=== PATIENT | female | born 1945 | race Caucasian/White ===

== ENCOUNTER → 2018-06-14 | Outpatient (CLI) | payer MEDICARE, OTHER ==
[~2018-06-14] MED LIST: ALPR.25 PO; AMLO5 PO; BENICAR; Benicar Hct 401 EAC1 PO; CELE200 PO; CHOL10002; CONEST.625; ESCI10 PO; ESCI5; FENO145 PO; FISH1000; Flonase 0.05% N16 GM; HYDCHL25 PO; K-Dur20 MEQ PO; LAVAZA; LISI5; OMEG1CAP30 PO; OMEPRAZOLE; OXYACE5T PO; OXYB5 PO; Omeprazole20 M1; PROM25 PO; RABE20; RANI150 PO; TRICOR
== END | disposition home or self-care (01) ==
LOC: LAB EV 07:30
DX: R10.13 Epigastric pain (principal)
CPT/HCPCS: 87338

== ENCOUNTER 2018-10-03 14:09 | Day surgery (SDC) | payer MEDICARE, OTHER ==
[~2018-10-03] VITALS: Ht 157.5 cm; Wt 77.8 kg
--- NOTE | 2018-10-03 14:49 | NUR ---
10/03/18 1449 Heather Duncan 1 IV MISS IN RW BY MATTEO Restrepo 1 GOOD IV IN RAC BY MATTEO DELA CRUZ TOW
== END 2018-10-03 15:45 | disposition home or self-care (01) ==
LOC: ORSCSDS 14:09
PROVIDERS: Internal Medicine Gastroenterology
PROC: 0D758ZZ Dilation of Esophagus, Via Natural or Artificial Opening Endoscopic (ICD-10-PCS; 2018-10-03)
PROC: 0DB68ZX Excision of Stomach, Via Natural or Artificial Opening Endoscopic, Diagnostic (ICD-10-PCS; principal; 2018-10-03 15:30)
PROC: 0DB58ZX Excision of Esophagus, Via Natural or Artificial Opening Endoscopic, Diagnostic (ICD-10-PCS; principal; 2018-10-03 15:30)
DX: R10.13 Epigastric pain (principal); K31.9 Disease of stomach and duodenum, unspecified; K44.9 Diaphragmatic hernia without obstruction or gangrene; K29.60 Other gastritis without bleeding; E66.9 Obesity, unspecified; I10 Essential (primary) hypertension; F41.8 Other specified anxiety disorders; Z68.31 Body mass index [BMI] 31.0-31.9, adult; K21.9 Gastro-esophageal reflux disease without esophagitis; Z79.899 Other long term (current) drug therapy
CPT/HCPCS: 87081; 88305; 88342; J7120

== ENCOUNTER 2018-10-29 18:11 | Emergency (ER) | payer MEDICARE, OTHER ==
[~2018-10-29] VITALS: Ht 157.5 cm; Wt 78.0 kg
[2018-10-29 20:15] LABS: Source, Urine Clean Catch
[2018-10-29 20:21] LABS: Bilirubin, Urine Neg (Neg); Blood, Urine 1+ (Neg); Glucose Qualitative, Urine Neg (Neg); Ketones, Urine Neg (Neg); Leukocyte Esterase, Urine Neg (Neg); Nitrite, Urine Neg (Neg); Protein, Urine Neg (Neg); Specific Gravity, Urine 1.015 (1.003-1.022); Urobilinogen, Urine NORM (Normal)
[2018-10-29 20:26] LABS: Appearance, Urine Hazy (Clear); Color, Urine Yellow (P-Yellow)
[2018-10-29 20:27] LABS: Amorphous Light (0-Heavy); Bacteria Mod /hpf; Red Blood Cells, Urine 0-2 /hpf (0-2); Squamous Epithelial Cells Mod /hpf (Few)
[2018-10-29] MEDS ORDERED: TRAM50 PO (20:46)
[2018-10-29] MEDS ORDERED: LIDO700A20 TOP (20:48)
== END 2018-10-29 20:55 | disposition home or self-care (01) ==
LOC: ER 18:11
PROVIDERS: Physician Assistant
DX: M54.5 Low back pain (principal); G89.29 Other chronic pain; I10 Essential (primary) hypertension; Z88.8 Allergy status to other drugs, medicaments and biological substances; Z79.899 Other long term (current) drug therapy
CPT/HCPCS: 72100; 81001; 87086; 99283-25

== ENCOUNTER 2019-08-26 11:27 | Emergency (ER) | payer MEDICARE, OTHER ==
[~2019-08-26] VITALS: Ht 157.5 cm; Wt 73.5 kg
[~2019-08-26 11:27] MED LIST changes: +LIDO700A20 TOP; +TRAM50 PO
[2019-08-26] MEDS ORDERED: HYDR1TAB94 PO (12:31)
[2019-08-26] MEDS ORDERED: IBUP800 PO (12:31)
== END 2019-08-26 12:46 | disposition home or self-care (01) ==
LOC: ER 11:27
DX: M23.92 Unspecified internal derangement of left knee (principal); Z88.8 Allergy status to other drugs, medicaments and biological substances; Z79.899 Other long term (current) drug therapy; I10 Essential (primary) hypertension
CPT/HCPCS: 29505; 73564; 99283-25

== ENCOUNTER 2020-10-06 08:28 | Day surgery (SDC) | payer MEDICARE, OTHER ==
[~2020-10-06] VITALS: Ht 154.9 cm; Wt 74.3 kg
[~2020-10-06 08:28] MED LIST changes: +Aspirin EC81 MG PO; +Bisoprolol Fumar5 MG PO; +CONEST.625 PO; +DULO30; +DULO30 PO; +HYDR1TAB94 PO; +IBUP800 PO; +MELO7.5 PO; +MYRBETRIQ25 MG PO; +Ziac 5-6.25 MG1 EACH PO
--- NOTE | 2020-10-06 09:22 | NUR ---
10/06/20 09 Daniela Echeverria BLOOD DRAWN AND ANTICOAG WAS ADDED TO SPECIMEN, DELIVERED TO OR AND SPUN.
--- NOTE | 2020-10-06 11:49 | NUR ---
10/06/20 1149 Sofi Bullard PT IN RECLINER WITH POLAR UNIT CONNECTED AND RUNNING. PT TOLERATING PO FLUIDS WELL. PT DENIES PAIN AND NAUSEA AT THIS TIME. PT ON 2L SUPPLIMENTAL 02 DUE TO SATS LESS THAN 91% IMMEDIATELY AFTER TRANSFER TO CHAIR. SATS ARE NOW 94% ON 2L OF O2. VSS AT THIS TIME. FAMILY CONTACTED AND UPDATED. INCENTIVE SPIROMETRY TAUGHT BY RN, PT DEMONSTRATED USE X3.
--- NOTE | 2020-10-06 14:20 | NUR ---
10/06/20 1420 Luciano Samuels 2 MG OF EPI ADDED TO EACH OF THE FIRST BAGS OF LR FOR IRRIGATION.
== END 2020-10-06 12:48 | disposition home or self-care (01) ==
LOC: ORSCSDS 08:28
PROVIDERS: Orthopaedic Surgery
PROC: 0RNK4ZZ Release Left Shoulder Joint, Percutaneous Endoscopic Approach (ICD-10-PCS; principal; 2020-10-06 10:15)
PROC: 0LS44ZZ Reposition Left Upper Arm Tendon, Percutaneous Endoscopic Approach (ICD-10-PCS; principal; 2020-10-06 10:15)
PROC: 0LQ24ZZ Repair Left Shoulder Tendon, Percutaneous Endoscopic Approach (ICD-10-PCS; principal; 2020-10-06 10:15)
DX: M75.112 Incomplete rotator cuff tear or rupture of left shoulder, not specified as traumatic (principal); M75.22 Bicipital tendinitis, left shoulder; M75.42 Impingement syndrome of left shoulder; I10 Essential (primary) hypertension; K21.9 Gastro-esophageal reflux disease without esophagitis; Z79.899 Other long term (current) drug therapy; Z79.82 Long term (current) use of aspirin
CPT/HCPCS: C1713; J0171; J0690; J1100; J1885; J2250; J2405; J2704; J2710; J3010; J7120

== ENCOUNTER 2021-02-24 18:06 | Emergency (ER) | payer MEDICARE, OTHER ==
[~2021-02-24] VITALS: Ht 152.4 cm; Wt 72.6 kg
[2021-02-24 18:36] LABS: BASOPHILS ABSOLUTE AUTO 0.03 K/mm3 (0.00-0.23); BASOPHILS PERCENT AUTO 0 % (0-2); EOSINOPHILS ABSOLUTE AUTO 0.14 K/mm3 (0.00-0.68); EOSINOPHILS PERCENT AUTO 2 % (0-6); IMMATURE GRAN ABSOLUTE AUTO 0.03 K/mm3 (0.00-0.10); IMMATURE GRAN PERCENT AUTO 0 % (0-1); LYMPHOCYTES ABSOLUTE AUTO 2.64 K/mm3 (0.84-5.20); LYMPHOCYTES PERCENT AUTO 37 % (21-46); MONOCYTES ABSOLUTE AUTO 0.58 K/mm3 (0.16-1.47); MONOCYTES PERCENT AUTO 8 % (4-13); Mean Corpuscular HGB 29.6 pg (26.0-34.0); Mean Corpuscular HGB Conc 33.3 g/dL (31.5-36.5); Mean Corpuscular Volume 89 fL (80-100); Mean Platelet Volume 9.7 fL (9.1-12.4); NEUTROPHILS ABSOLUTE AUTO 3.69 K/mm3 (1.96-9.15); NEUTROPHILS PERCENT AUTO 52 % (41-73); Platelet Count 298 K/mm3 (150-400); RDW Coefficient Variation 12.5 % (11.7-14.2); RDW Standard Deviation 41.2 fL (35.1-46.3); Red Blood Cell Count 4.73 M/mm3 (3.80-5.20); White Blood Cell Count 7.11 K/mm3 (4.00-11.30)
[2021-02-24 19:01] LABS: Alanine Aminotransfer (ALT/SGP 19 U/L (12-78); Albumin, Blood 3.6 g/dL (3.4-5.0); Alk Phos 81 U/L (50-136); Anion Gap 5 mmol/L (6-16); Aspartate Aminotrans (AST/SGOT 14 U/L (12-37); Bilirubin, Total 0.3 mg/dL (0.1-1.0); Blood Urea Nitrogen 15 mg/dL (8-24); Bun/Creatinine Ratio 18.7 (12.0-20.0); CO2, Blood 29 mmol/L (21-32); Calcium, Blood 9.2 mg/dL (8.5-10.1); Chloride, Blood 107 mmol/L (98-108); Globulin, Blood 3.7 g/dL (2.2-4.0); Glomerular Filtration Rate >60 (60-); Glucose, Blood 148 mg/dL (70-99); Potassium, Blood 3.2 mmol/L (3.5-5.5); Sodium, Blood 141 mmol/L (136-145); Total Protein, Blood 7.3 g/dL (6.4-8.2); Troponin I <0.015 ng/mL (0.000-0.040)
== END 2021-02-24 20:45 | disposition home or self-care (01) ==
LOC: ER 18:06
PROVIDERS: Physician Assistant
DX: I10 Essential (primary) hypertension (principal); Z79.82 Long term (current) use of aspirin; Z79.899 Other long term (current) drug therapy
CPT/HCPCS: 36415; 71046; 80053; 84484; 85025; 93005; 93010; 99284-25

== ENCOUNTER 2022-02-24 22:05 | Emergency (ER) | payer MEDICARE, OTHER ==
[~2022-02-24] VITALS: Ht 154.9 cm; Wt 72.6 kg
[2022-02-24 23:31] LABS: Influenza A, PCR NEGATIVE (NEGATIVE); Influenza B, PCR NEGATIVE (NEGATIVE); Resp Syncytial Virus, PCR NEGATIVE (NEGATIVE); SARS-Cov-2 (COVID-19) PCR, MMC NEGATIVE (NEGATIVE)
[2022-02-25] MEDS ORDERED: Amoxicillin500 MG PO (00:41)
[2022-02-25] MEDS ORDERED: BENZ100A PO (00:41)
== END 2022-02-25 00:57 | disposition home or self-care (01) ==
LOC: ER 22:05
PROVIDERS: Physician Assistant
DX: J20.9 Acute bronchitis, unspecified (principal); H66.90 Otitis media, unspecified, unspecified ear; I10 Essential (primary) hypertension; Z88.8 Allergy status to other drugs, medicaments and biological substances; Z79.899 Other long term (current) drug therapy; Z79.82 Long term (current) use of aspirin
CPT/HCPCS: 0241U; 71046; 94640; 94664; 99284-25; A9270

== ENCOUNTER 2022-03-02 17:34 | Emergency (ER) | payer MEDICARE, OTHER ==
[~2022-03-02] VITALS: Ht 154.9 cm; Wt 65.3 kg
[~2022-03-02 17:34] MED LIST changes: +Amoxicillin500 MG PO; +BENZ100A PO
[2022-03-02] MEDS ORDERED: NEOPOLHCSU BOTHEARS (19:19)
== END 2022-03-02 19:39 | disposition home or self-care (01) ==
LOC: ER 17:34
DX: H60.93 Unspecified otitis externa, bilateral (principal); I10 Essential (primary) hypertension; Z79.899 Other long term (current) drug therapy; Z79.82 Long term (current) use of aspirin; Z88.8 Allergy status to other drugs, medicaments and biological substances
CPT/HCPCS: 99282

== ENCOUNTER 2023-02-03 08:58 | Observation (INO) | payer MEDICARE, OTHER ==
[~2023-02-03] VITALS: Ht 154.9 cm; Wt 65.0 kg
[~2023-02-03 08:58] MED LIST changes: -CHOL10002; +Carvedilol12.5 MG PO; +NEOPOLHCSU BOTHEARS; +VITAMIN D310 MC4 PO
[2023-02-03 09:53] LABS: BASOPHILS ABSOLUTE AUTO 0.02 K/mm3 (0.00-0.23); BASOPHILS PERCENT AUTO 0 % (0-2); EOSINOPHILS PERCENT AUTO 2 % (0-6); Hematocrit 37.5 % (33.0-51.0); Hemoglobin 12.7 g/dL (11.5-16.0); IMMATURE GRAN ABSOLUTE AUTO 0.02 K/mm3 (0.00-0.10); IMMATURE GRAN PERCENT AUTO 0 % (0-1); LYMPHOCYTES ABSOLUTE AUTO 1.98 K/mm3 (0.84-5.20); LYMPHOCYTES PERCENT AUTO 37 % (21-46); MONOCYTES ABSOLUTE AUTO 0.47 K/mm3 (0.16-1.47); MONOCYTES PERCENT AUTO 9 % (4-13); Mean Corpuscular HGB 30.2 pg (26.0-34.0); Mean Corpuscular HGB Conc 33.9 g/dL (31.5-36.5); Mean Corpuscular Volume 89 fL (80-100); Mean Platelet Volume 10.1 fL (9.1-12.4); NEUTROPHILS ABSOLUTE AUTO 2.78 K/mm3 (1.96-9.15); NEUTROPHILS PERCENT AUTO 52 % (41-73); Platelet Count 210 K/mm3 (150-400); RDW Coefficient Variation 12.1 % (11.7-14.2); RDW Standard Deviation 39.4 fL (35.1-46.3); Red Blood Cell Count 4.21 M/mm3 (3.80-5.20); White Blood Cell Count 5.37 K/mm3 (4.00-11.30)
[2023-02-03] MEDS ORDERED: CATAPRES0.1 MG PO (10:06)
[2023-02-03 10:13] LABS: Albumin, Blood 3.1 g/dL (3.4-5.0); Albumin/Globulin Ratio 0.9 (0.8-1.8); Bilirubin, Total 0.4 mg/dL (0.1-1.0); Bun/Creatinine Ratio 21.7 (12.0-20.0); Calcium, Blood 8.8 mg/dL (8.5-10.1); Creatinine, Blood 0.83 mg/dL (0.40-1.00); Globulin, Blood 3.6 g/dL (2.2-4.0); Total Protein, Blood 6.7 g/dL (6.4-8.2)
[2023-02-03 12:41] LABS: CHOL/HDL RATIO 3.7; Cholesterol 217 mg/dL (50-200); HDL Cholesterol 58 mg/dL (>39); LDL/HDL RATIO 1.9; Low Density Lipoprotein Chol 109 mg/dL (0-110); Triglycerides 248 mg/dL (30-160); Very Low Density Lipoprot Chol 49 mg/dL (6-32)
[2023-02-03 13:58] VITALS: BP 171/73
--- NOTE | 2023-02-03 14:19 | NUR ---
ADMIT SUMMARY: REPORT FROM EDGAR RESENDIZ. PT A/O X 4, STANDBY ASSIST. PT ARRIVED TO UNIT VIA [place], STANDBY TX STEADY ON FEET. DENIES CP, PRESSURE. NEURO INTACT. SKIN CHECK COMPLETED. PT DENIES CONCERNS. PT AND FAMILY ORIENTED TO RM, CALL LIGHT, FALL PRECAUTIONS.
[2023-02-03] MEDS ORDERED: GABA300 PO (14:49)
[2023-02-03] MEDS ORDERED: FURO20 PO (14:49)
[2023-02-03] MEDS ORDERED: CARV25 PO (14:51)
[2023-02-03] MEDS ORDERED: ROSU5 PO (14:53)
[2023-02-03] MEDS ORDERED: LOSA50 PO (14:54)
--- NOTE | 2023-02-03 15:22 | NUR ---
REPORT GIVEN TO ASTRID ROBERTS TAKING OVER CARE OF PATIENTS. BEDSIDE REPORT GIVEN.
[2023-02-03 15:50] VITALS: BP 150/69
--- NOTE | 2023-02-03 17:52 | NUR ---
SHIFT SUMMARY ASSUMED CARE OF PT AT 1500HRS. SHE WAS ADMITTED TO MEDICAL UNIT TODAY FROM THE ER. FAMILY PRESENT ON ADMISSION. PT HAD WEAKNESS AND FACIAL DROOP THAT HAS SINCE RESOLVED. NO FACIAL DROOP. EQUAL HEAD TELLER. NO ARM DRIFT. ABLE TO TOUCH NOSE WITH INDEX FINGER EQUALLY. EQUAL LEG STRENGTH. UP TO BATHROOM INDEPENDENTLY, STEADY GAIT. HAS CHRONIC BACK PAIN, HEAT PAD HELPING. ON TELEMETRY - NO CALLS FROM AQUARIST. TTE DONE. RECENT CATARACT SURGERY. PREDNISOLONE EYE DROPS ORDERED. BED LOW, CALL LIGHT IN REACH.
[2023-02-03 19:36] VITALS: BP 121/56
--- NOTE | 2023-02-04 01:26 | NUR ---
NURSE NOTE--PHYSICAN CONTACT PT REPORTS SHE SHE TAKES A MEDICATION FOR ACTIVE BLADDER--MYBETRIQ 50MG DAILY. NOT AVAILABLE. TALKED TO PHARMACY--ADVISED BY PHARMACIST THAT SUBSTITUE MED IS SANCTURE/TROSPIUM 20MG 2X DAILY, BIDAC. CALL TO MANDARIN CHINESE TEACHER; NEW ORDER FOR TOSPIUM 20MG BIDAC.
[2023-02-04 03:47] VITALS: BP 143/76
--- NOTE | 2023-02-04 05:03 | NUR ---
ASSISTANT COMMUNITY DIRECTOR SUMMARY PT A/OX4. DAUGHTER AT BEDSIDE T/O THE NIGHT. PT ABLE TO MAKE NEEDS KNOWN. PLEASANT AND COOPERATIVE. PT ADMIT WITH TIA, LEFT FACIAL DROOP, AND SLURRED SPEECH. AT SHIFT CHANGE SMYPTOMS HAD RESOLVED. PT CONT TO REPORT FEELING "OFF" AND "TIRED". APROX 2200 DAUGHTER THOUGT PT SLUR WAS COMING BACK. COMPLETED ALVIN ASSESSMENT; NO SIGN OF DROOP. MOSTLY NORMAL NEURO ASSESSMENT. SPEECH MAY HAVE BEEN SLIGHTLY MUMBLED BUT PT WAS SEEMED VERY SLEEPY. CONT TO MONITOR T/O THE NIGHT. CALLED BESSEMER REGULATOR FOR BLADDER MED; SEE NOTE. SPOT CHECK MANUAL BLOOD PRESSURE T/O THE NIGHT. VITAL SIGNS REVIEWED AND STABLE.
[2023-02-04 07:50] VITALS: BP 191/74
[2023-02-04 08:41] VITALS: BP 195/75
[2023-02-04 10:10] VITALS: BP 173/77
[2023-02-04] MEDS ORDERED: PANT40 PO (11:25)
[2023-02-04] MEDS ORDERED: Plavix75 MG PO (11:25)
[2023-02-04] MEDS ORDERED: PREDNISOLONE ACE5 ML BOTHEYES (11:26)
--- NOTE | 2023-02-04 12:30 | NUR ---
DISCHARGE INSTRUCTIONS COMPLETED AND DISCUSSED WITH PT AND FAMILY. TO [facility] VIA W/C.
== END 2023-02-04 12:05 | disposition home or self-care (01) ==
LOC: ER 08:58 → MEDS 08:59 → ENPENDDIS 02-04 09:49 → MEDS 02-04 12:05
PROVIDERS: Emergency Medicine; ADMIT Family Medicine
DX: G45.9 Transient cerebral ischemic attack, unspecified (principal); I10 Essential (primary) hypertension; E78.5 Hyperlipidemia, unspecified; Z88.8 Allergy status to other drugs, medicaments and biological substances; Z79.899 Other long term (current) drug therapy
CPT/HCPCS: 70450; 70496; 70498; 71045; 80053; 80061; 82947; 85025; 93005; 93010; 93306; 96372; 96374; 99285-25; A9270; G0378; J0360; J1650; Q9967

== ENCOUNTER 2023-02-06 09:24 | Emergency (ER) | payer MEDICARE, OTHER ==
[~2023-02-06] VITALS: Ht 154.9 cm; Wt 64.9 kg
[~2023-02-06 09:24] MED LIST changes: +CARV25 PO; +CATAPRES0.1 MG PO; +FURO20 PO; +GABA300 PO; +LOSA50 PO; +PANT40 PO; +PREDNISOLONE ACE5 ML BOTHEYES; +Plavix75 MG PO; +ROSU5 PO
[2023-02-06 10:01] LABS: BASOPHILS ABSOLUTE AUTO 0.03 K/mm3 (0.00-0.23); BASOPHILS PERCENT AUTO 1 % (0-2); EOSINOPHILS ABSOLUTE AUTO 0.11 K/mm3 (0.00-0.68); EOSINOPHILS PERCENT AUTO 2 % (0-6); Hematocrit 41.8 % (33.0-51.0); IMMATURE GRAN ABSOLUTE AUTO 0.02 K/mm3 (0.00-0.10); IMMATURE GRAN PERCENT AUTO 0 % (0-1); LYMPHOCYTES ABSOLUTE AUTO 2.13 K/mm3 (0.84-5.20); LYMPHOCYTES PERCENT AUTO 36 % (21-46); MONOCYTES ABSOLUTE AUTO 0.51 K/mm3 (0.16-1.47); MONOCYTES PERCENT AUTO 9 % (4-13); Mean Corpuscular HGB Conc 33.5 g/dL (31.5-36.5); Mean Corpuscular Volume 90 fL (80-100); Mean Platelet Volume 9.8 fL (9.1-12.4); NEUTROPHILS PERCENT AUTO 53 % (41-73); Platelet Count 252 K/mm3 (150-400); RDW Coefficient Variation 12.2 % (11.7-14.2); Red Blood Cell Count 4.67 M/mm3 (3.80-5.20)
[2023-02-06 10:25] LABS: Albumin, Blood 3.3 g/dL (3.4-5.0); Albumin/Globulin Ratio 0.9 (0.8-1.8); Bilirubin, Total 0.6 mg/dL (0.1-1.0); Bun/Creatinine Ratio 22.4 (12.0-20.0); Calcium, Blood 8.6 mg/dL (8.5-10.1); Creatinine, Blood 0.98 mg/dL (0.40-1.00); Globulin, Blood 3.8 g/dL (2.2-4.0); Potassium, Blood 3.6 mmol/L (3.5-5.5); Total Protein, Blood 7.1 g/dL (6.4-8.2)
[2023-02-06 11:27] VITALS: BP 145/65
== END 2023-02-06 11:26 | disposition home or self-care (01) ==
LOC: ER 09:24
PROVIDERS: Physician Assistant
DX: I95.9 Hypotension, unspecified (principal); R40.4 Transient alteration of awareness; I10 Essential (primary) hypertension; Z88.8 Allergy status to other drugs, medicaments and biological substances; Z79.899 Other long term (current) drug therapy; Z79.82 Long term (current) use of aspirin
CPT/HCPCS: 70450; 80053; 82947; 85025; 93005; 93010; 99284-25

== ENCOUNTER 2023-08-01 12:18 | Emergency (ER) | payer MEDICARE, OTHER ==
[~2023-08-01] VITALS: Ht 154.9 cm; Wt 72.6 kg
[2023-08-01 12:21] VITALS: BP 173/89
== END 2023-08-01 12:52 | disposition home or self-care (01) ==
LOC: ER 12:18
DX: U07.1 COVID-19 (principal); Z88.8 Allergy status to other drugs, medicaments and biological substances; Z79.899 Other long term (current) drug therapy; Z79.82 Long term (current) use of aspirin; I10 Essential (primary) hypertension
CPT/HCPCS: 99284

== ENCOUNTER 2023-08-16 13:25 | Emergency (ER) | payer OTHER, MEDICARE ==
[~2023-08-16] VITALS: Ht 154.9 cm; Wt 70.8 kg
[2023-08-16 13:35] VITALS: BP 170/70
== END 2023-08-16 15:28 | disposition home or self-care (01) ==
LOC: ER 13:25
DX: S09.90XA Unspecified injury of head, initial encounter (principal); I10 Essential (primary) hypertension; W01.0XXA Fall on same level from slipping, tripping and stumbling without subsequent striking against object, initial encounter; Z23 Encounter for immunization; Z79.82 Long term (current) use of aspirin; Z79.899 Other long term (current) drug therapy; Z79.02 Long term (current) use of antithrombotics/antiplatelets
CPT/HCPCS: 70450; 90471; 90714; 90715; 99283-25; A9270

== ENCOUNTER 2023-09-26 11:09 | Emergency (ER) | payer MEDICARE, OTHER ==
[~2023-09-26] VITALS: Ht 154.9 cm; Wt 72.6 kg
[2023-09-26 11:37] LABS: BASOPHILS ABSOLUTE AUTO 0.01 K/mm3 (0.00-0.23); BASOPHILS PERCENT AUTO 0 % (0-2); EOSINOPHILS ABSOLUTE AUTO 0.02 K/mm3 (0.00-0.68); EOSINOPHILS PERCENT AUTO 0 % (0-6); Hematocrit 44.6 % (33.0-51.0); Hemoglobin 14.7 g/dL (11.5-16.0); IMMATURE GRAN ABSOLUTE AUTO 0.02 K/mm3 (0.00-0.10); IMMATURE GRAN PERCENT AUTO 0 % (0-1); LYMPHOCYTES ABSOLUTE AUTO 0.95 K/mm3 (0.84-5.20); LYMPHOCYTES PERCENT AUTO 16 % (21-46); MONOCYTES ABSOLUTE AUTO 0.57 K/mm3 (0.16-1.47); MONOCYTES PERCENT AUTO 9 % (4-13); Mean Corpuscular HGB 30.2 pg (26.0-34.0); Mean Corpuscular Volume 92 fL (80-100); Mean Platelet Volume 9.4 fL (9.1-12.4); NEUTROPHILS ABSOLUTE AUTO 4.47 K/mm3 (1.96-9.15); NEUTROPHILS PERCENT AUTO 74 % (41-73); Platelet Count 226 K/mm3 (150-400); RDW Coefficient Variation 12.3 % (11.7-14.2); RDW Standard Deviation 41.8 fL (35.1-46.3); Red Blood Cell Count 4.86 M/mm3 (3.80-5.20); White Blood Cell Count 6.04 K/mm3 (4.00-11.30)
[2023-09-26 12:15] LABS: Albumin/Globulin Ratio 0.8 (0.8-1.8); Bilirubin, Total 0.4 mg/dL (0.1-1.0); Bun/Creatinine Ratio 17.9 (12.0-20.0); Calcium, Blood 8.6 mg/dL (8.5-10.1); Creatinine, Blood 0.78 mg/dL (0.40-1.00); Magnesium, Blood 2.1 mg/dL (1.6-2.4); Potassium, Blood 3.3 mmol/L (3.5-5.5)
[2023-09-26 12:30] VITALS: BP 164/69
== END 2023-09-26 12:49 | disposition home or self-care (01) ==
LOC: ER 11:09
PROVIDERS: Physician Assistant
DX: F07.81 Postconcussional syndrome (principal); I10 Essential (primary) hypertension; E78.5 Hyperlipidemia, unspecified; Z79.82 Long term (current) use of aspirin; Z79.02 Long term (current) use of antithrombotics/antiplatelets; Z79.899 Other long term (current) drug therapy; Z88.8 Allergy status to other drugs, medicaments and biological substances
CPT/HCPCS: 70450; 80053; 83735; 85025; 99284-25; A9270

== ENCOUNTER → 2023-10-09 | Outpatient (CLI) | payer MEDICARE, OTHER | LOC: LAB 12:32 → LAB SHORT 12:32 | DX: L57.0 Actinic keratosis (principal) | CPT/HCPCS: 88305 ==

== ENCOUNTER 2025-04-24 11:09 | Emergency (ER) | payer MEDICARE, OTHER ==
[~2025-04-24] VITALS: Ht 154.9 cm; Wt 68.0 kg
[~2025-04-24 11:09] MED LIST changes: +ONDA4ODT MM; +OXAYDO5 M1 PO
[2025-04-24 11:19] VITALS: BP 174/119
[2025-04-24 12:30] LABS: Alanine Aminotransfer (ALT/SGP 16.0 U/L (12-78); Albumin, Blood 3.2 g/dL (3.4-5.0); Albumin/Globulin Ratio 0.9 (0.8-1.8); Anion Gap 8.0 mmol/L (3-11); Aspartate Aminotrans (AST/SGOT 15.0 U/L (12-37); Bilirubin, Total 0.3 mg/dL (0.1-1.0); Blood Urea Nitrogen 14.0 mg/dL (8-24); CO2, Blood 28.0 mmol/L (21-32); Calcium, Blood 9.0 mg/dL (8.5-10.1); Chloride, Blood 105.0 mmol/L (98-108); Creatinine, Blood 0.68 mg/dL (0.40-1.00); Globulin, Blood 3.6 g/dL (2.2-4.0); Glucose, Blood 96.0 mg/dL (70-99); Potassium, Blood 4.2 mmol/L (3.5-5.5); Sodium, Blood 137.0 mmol/L (136-145); Total Protein, Blood 6.8 g/dL (6.4-8.2)
[2025-04-24 12:34] LABS: BASOPHILS ABSOLUTE AUTO 0.03 K/mm3 (0.00-0.23); BASOPHILS PERCENT AUTO 1 % (0-2); EOSINOPHILS ABSOLUTE AUTO 0.11 K/mm3 (0.00-0.68); EOSINOPHILS PERCENT AUTO 2 % (0-6); Hematocrit 38.2 % (33.0-51.0); Hemoglobin 12.6 g/dL (11.5-16.0); IMMATURE GRAN ABSOLUTE AUTO 0.02 K/mm3 (0.00-0.10); IMMATURE GRAN PERCENT AUTO 0 % (0-1); LYMPHOCYTES ABSOLUTE AUTO 2.16 K/mm3 (0.84-5.20); LYMPHOCYTES PERCENT AUTO 35 % (21-46); MONOCYTES ABSOLUTE AUTO 0.56 K/mm3 (0.16-1.47); MONOCYTES PERCENT AUTO 9 % (4-13); Mean Corpuscular HGB Conc 33.0 g/dL (31.5-36.5); Mean Corpuscular Volume 91 fL (80-100); NEUTROPHILS ABSOLUTE AUTO 3.32 K/mm3 (1.96-9.15); NEUTROPHILS PERCENT AUTO 54 % (41-73); NRBC ABSOLUTE 0.00 K/mm3 (0.00-0.02); NRBC Auto 0.0 /100 WBC (0.0-0.2); Platelet Count 246 K/mm3 (150-400); RDW Coefficient Variation 12.7 % (11.7-14.2); RDW Standard Deviation 41.6 fL (35.1-46.3)
== END 2025-04-24 16:38 | disposition home or self-care (01) ==
LOC: ER 11:09
PROVIDERS: Student in an Organized Health Care Education/Training Program
DX: I10 Essential (primary) hypertension (principal); E78.5 Hyperlipidemia, unspecified; Z91.81 History of falling; Z90.710 Acquired absence of both cervix and uterus; Z90.49 Acquired absence of other specified parts of digestive tract; Z88.8 Allergy status to other drugs, medicaments and biological substances; Z79.82 Long term (current) use of aspirin; Z79.899 Other long term (current) drug therapy
CPT/HCPCS: 70450; 71046; 80053; 85025; 93005; 93010; 99284-25

== ENCOUNTER 2025-05-31 13:22 | Emergency (ER) | payer MEDICARE, OTHER ==
[~2025-05-31] VITALS: Ht 162.6 cm; Wt 65.8 kg
[2025-05-31 14:03] VITALS: BP 206/110
[2025-05-31] MEDS ORDERED: HYDROcodone 5-APAP 325 TAB PO ONE (14:05)
[2025-05-31] MEDS ORDERED: CeFAZolin Sodium 2,000 MG in NS 100 ML IV ONE (14:10)
[2025-05-31] MEDS ORDERED: Oxymetazoline 0.05% Nasal Relief Spray 15mL BTL ONE (15:25)
[2025-05-31] MEDS ORDERED: Tranexamic Acid 100 ML IV ONE (16:10)
[2025-05-31] MEDS ORDERED: AMOCLA875 PO (16:50)
[2025-05-31] MEDS ORDERED: HYDR1TAB94 PO (16:50)
== END 2025-05-31 17:30 | disposition home or self-care (01) ==
LOC: ER 13:22
DX: S02.2XXB Fracture of nasal bones, initial encounter for open fracture (principal); I10 Essential (primary) hypertension; E78.5 Hyperlipidemia, unspecified; W01.0XXA Fall on same level from slipping, tripping and stumbling without subsequent striking against object, initial encounter; Z79.899 Other long term (current) drug therapy; Z79.82 Long term (current) use of aspirin; Z88.8 Allergy status to other drugs, medicaments and biological substances
CPT/HCPCS: 12011; 70450; 72125; 90471; 90715; 96374-59; 99284-25; A9270; J0690